=== PATIENT | male | born 1955 | race Caucasian/White ===

== ENCOUNTER 2018-09-05 10:15 | Emergency (ER) | payer OTHER ==
--- NOTE | 2018-09-05 12:15 | EDPHY ---
H & P Time Seen by Provider: 09/05/18 10:23 HPI/ROS: This patient complains of inability to urinate since 3:00 a.m. With gradual onset of diminished urinary flow and then unable to urinate since 3:00 a.m.. He rib came in presenting with 8/10 suprapubic pain and no other associated symptoms except for mild URI symptoms with past week consisting of nasal congestion is now improving. He reports no other complaints as here with his by private vehicle. ROS: No constitutional symptoms. HEENT: No complaints pulmonary: No complaints new line musculoskeletal: No complaints GI: No nausea or vomiting : No flank pain. No testicular pain or swelling. No dysuria. No hematuria. No testicular pain 7 point review of symptoms is performed and otherwise negative with exception of pertinent positives and negatives listed in HPI and ROS Smoking Status: Never smoked Physical Exam: General Appearance: Alert, no distress. Eyes: Pupils equal and round no pallor or injection. ENT, Mouth: Mucous membranes moist. Respiratory: There are no retractions, lungs are clear to auscultation. Cardiovascular: Regular rate and rhythm. Gastrointestinal: Suprapubic tenderness and distention : No CVA tenderness. No testicular swelling or tenderness. Neurological: GCS 15 Skin: Warm and dry, no rashes. Musculoskeletal: Neck is supple nontender. Extremities are symmetrical, full range of motion. Psychiatric: Mood and affect normal DIFFERENTIAL DIAGNOSIS: After history and physical exam differential diagnosis was considered for lower urinary obstruction, progression of BPH, acute UTI, renal failure Constitutional: Initial Vital Signs Temperature (C) 36.5 C 09/05/18 10:25 Heart Rate 73 09/05/18 10:25 Respiratory Rate 18 09/05/18 10:25 Blood Pressure 130/84 H 09/05/18 10:25 O2 Sat (%) 98 09/05/18 10:25 O2 Delivery Mode Room Air Allergies/Adverse Reactions: No Known Allergies Allergy (Unverified 09/05/18 10:25) Home Medications: Medication Instructions Recorded Tamsulosin HCl [Flomax 0.4 MG (*)] 0.4 mg PO DAILY #10 cap 09/05/18 MDM/Departure - MDM Diagnostics: POC CBC, basic metabolic panel are normal. POC urine dip is positive for hematuria only otherwise normal ED Course/Re-evaluation: I discussed this case with Dr. Anselmo Mullen, urologist will follow up early next week with this patient agrees with treatment plan of Tamulosin and Matos cath with leg bag over the weekend. - Depart Disposition: Home, Routine, Self-Care Clinical Impression: Lower urinary tract obstruction BPH (benign prostatic hyperplasia) Qualifiers: Lower urinary tract symptom presence: symptoms present Lower urinary tract symptom detail: urinary obstruction Qualified Code(s): N40.1 - Benign prostatic hyperplasia with lower urinary tract symptoms Condition: Good Instructions: Matos Catheter Placement and Care (ED) Additional Instructions: Diagnosis: Lower urinary obstruction 2. Benign prostatic hyperplasia Plan: Continue Flomax Matos catheter with leg bag over the weekend. Call today to make follow-up appointment for early next week with Dr. Mann, urologist. Return emergency department if he developed fevers or other concerns Prescriptions: Tamsulosin HCl [Flomax 0.4 MG (*)] 0.4 mg PO DAILY #10 cap Referrals: Randy Mann MD [Medical Doctor] - As per Instructions Isaac Springer MD [Primary Care Provider] - As per Instructions
[2018-09-05 12:37] VITALS: BP 117/70
== END 2018-09-05 12:37 | disposition home or self-care (01) ==
LOC: CED 10:15
PROC: 0T9B70Z Drainage of Bladder with Drainage Device, Via Natural or Artificial Opening (ICD-10-PCS; principal; 2018-09-05)
DX: N40.1 Benign prostatic hyperplasia with lower urinary tract symptoms (principal); R33.9 Retention of urine, unspecified
CPT/HCPCS: 80048-ER; 99283-ER